=== PATIENT | female | born 1945 | race Caucasian/White ===

== ENCOUNTER 2018-05-01 22:50 | Inpatient (IN) | payer OTHER ==
[~2018-05-01] VITALS: Ht 172.7 cm; Wt 95.7 kg
[~2018-05-01 22:50] MED LIST: ASPIR 8181 MG PO; ASPIRIN600 MG RECTAL; BISOPROLOL FUM2.5 MG PO; COLACE100 MG PO; DEXTROSE IV; ENOXAPARIN40 MG/0.1 SUBQ; FEVERALL JR 32325 M1 RECTAL; GLUCAGEN1 MG IM; GLUCOTROL5 MG PO; GLUTOSE GEL 1515 G1 PO; LEVOTHYROXIN0.112 M1 PO; LIPITOR 20 MG T20 M1 PO; LISINOPRIL2.5 M1 PO; MILK OF MA2400 MG/10 PO; NORVASC10 MG PO; NOVOLOG100 UNIT/1 SUBQ; ONDANSETRON HCL4 M2 PO; PEPCID20 MG PO; PLAVIX 75 MG TA75 M1 PO; TRICOR145 MG PO; TYLENOL325 MG PO; ZOCOR 10 MG TAB10 MG PO; ZOCOR20 MG PO; [UNRECOGNIZED DRUG - OTHER] IV; [UNRECOGNIZED DRUG - OTHER] PO
[2018-05-01 22:53] VITALS: BP 192/74
[2018-05-01 23:46] LABS: ABSOLUTE BASOPHILS 0.1 thou/uL (0.0-0.2); ABSOLUTE EOSINOPHILS 0.2 thou/uL (0.0-0.7); ABSOLUTE LYMPHOCYTES 2.8 thou/uL (0.8-5.3); ABSOLUTE MONOCYTES 0.6 thou/uL (0.0-1.2); ABSOLUTE NEUTROPHILS 4.3 thou/uL (1.6-8.1); BASOPHILS 1.3 %; EOSINOPHILS 2.7 %; HEMATOCRIT 38.5 % (37.0-47.0); HEMOGLOBIN 13.1 gm/dL (12.0-15.0); LYMPHOCYTES 34.6 %; MCH 30.1 pg (26.0-34.0); MCHC 33.9 g/dL (28.0-37.0); MCV 88.7 fL (80.0-100.0); MONOCYTES 7.2 %; MPV 7.9 fl. (7.2-11.1); NUCLEATED RBCS 0 /100WBC; PLATELET COUNT* 354 thou/uL (150-400); POLYS 54.2 %; RBC 4.34 mil/uL (4.20-5.00); RDW-CV 13.8 % (10.5-14.5)
[2018-05-01 23:55] LABS: ANION GAP 10 mmol/L (7-16); BUN 23 mg/dL (7-18); CALCIUM 8.5 mg/dL (8.5-10.1); CHLORIDE 102 mmol/L (98-107); CO2 24 mmol/L (21-32); GLUCOSE 273 mg/dL (70-99); POTASSIUM 3.4 mmol/L (3.5-5.1); SODIUM 136 mmol/L (136-145)
[2018-05-02] LABS: URINE BILIRUBIN NEGATIVE (Negative); URINE BLOOD NEGATIVE (Negative); URINE CLARITY CLEAR; URINE COLOR YELLOW; URINE GLUCOSE-RANDOM 2+ (Negative); URINE KETONES NEGATIVE (Negative); URINE LEUKOCYTES-REFLEX NEGATIVE (Negative); URINE NITRITE-REFLEX NEGATIVE (Negative); URINE PROTEIN NEGATIVE (Negative); URINE UROBILINOGEN 0.2 E.U./dl (0.2-1.0)
[2018-05-02 00:07] LABS: ALBUMIN 3.8 g/dL (3.4-5.0); ALKALINE PHOSPHATASE 103 U/L (46-116); NT-PRO BRAIN NAT PEPTIDE 115 pg/mL (<300); SGPT 32 U/L (30-65); TOTAL BILIRUBIN 0.4 mg/dL (<0.1-1.0); TOTAL PROTEIN 7.1 g/dL (6.4-8.2); TROPONIN-I LEVEL <0.06 ng/mL (<0.06)
[2018-05-02 00:13] LABS: PROTIME 9.7 Seconds (9.20-11.50)
[2018-05-02 00:42] LABS: SGOT 21 U/L (15-37)
[2018-05-02 01:50] VITALS: BP 144/60
[2018-05-02 02:06] VITALS: BP 169/66
[2018-05-02 07:40] VITALS: BP 146/61
--- NOTE | 2018-05-02 10:30 | EKG ---
[place] [address] ELECTROCARDIOGRAM REPORT Name: DANNALYUBOVAbril Thomson Room: [address] ADM [place] .R.#: [id number] Admission: 05/02/18 Attend Phys: Jovani Cason, Discharge: Date of : 41 Report #: [id number] THIS REPORT FOR: //name// [facility] ED Test Date: 2018-05-01 Test Time: 23:06:30 Pat Name: HINA CLAY Department: Room: [facility] Gender: F Customer Support Analyst: KRYSTLE : 1945 Requested By: Linn Ladd Order Number: [id number] MD: Rusty Pearce Measurements Intervals [place] Rate: 73 P: 57 [place]: 185 QRS: 20 QRSD: 124 T: 59 QT: 425 QTc: 469 Interpretive Statements Sinus rhythm Nonspecific intraventricular conduction delay Minimal ST depression, inferior leads Compared to ECG 01/16/2016 23:33:39 no change Electronically Signed On 05-02-2018 10:30:29 CDT by Rusty Pearce [email or web address] <ELECTRONICALLY SIGNED> By: Rusty Pearce MD, [facility] 05/02/18 1030 05 Rusty Pearce MD, [facility] /EPI
[2018-05-02 12:00] VITALS: BP 152/70
[2018-05-02 14:35] LABS: CALCIUM 8.1 mg/dL (8.5-10.1); POTASSIUM 3.5 mmol/L (3.5-5.1)
[2018-05-02 16:00] VITALS: BP 151/59
[2018-05-02 19:30] VITALS: BP 146/58
[2018-05-03] VITALS: BP 154/64
[2018-05-03 04:00] VITALS: BP 155/68
[2018-05-03 08:00] VITALS: BP 104/72
[2018-05-03 09:41] LABS: CHOLESTEROL 132 mg/dL (<200); HDL CHOLESTEROL 24 mg/dL (>40); LDL CHOLESTEROL 36 mg/dL (<100); SERUM ASSESSMENT Clear; TC:HDL 5.5 Ratio (Not establshd); TRIGLYCERIDE 362 mg/dL (<150); VLDL 72 mg/dL (<40)
[2018-05-03 12:04] VITALS: BP 149/52
[2018-05-03 12:57] LABS: ALBUMIN 3.7 g/dL (3.4-5.0); CALCIUM 8.6 mg/dL (8.5-10.1); CREATININE 0.8 mg/dL (0.6-1.3); POTASSIUM 3.9 mmol/L (3.5-5.1); TOTAL BILIRUBIN 0.5 mg/dL (<0.1-1.0); TOTAL PROTEIN 6.7 g/dL (6.4-8.2)
[2018-05-03 16:22] VITALS: BP 151/101
[2018-05-03 20:00] VITALS: BP 164/74
[2018-05-04] VITALS: BP 148/88
[2018-05-04 04:00] VITALS: BP 161/78
[2018-05-04 07:55] VITALS: BP 155/61
[2018-05-04 11:35] VITALS: BP 183/88
[2018-05-04] MEDS ORDERED: MINOCIN100 MG PO (13:26)
[2018-05-04] MEDS ORDERED: ATORVASTATIN CA40 MG PO (13:26)
[2018-05-04] MEDS ORDERED: MIRALAX17 GM PO (13:54)
[2018-05-04 13:55] VITALS: BP 183/88
[2018-05-04 15:09] LABS: GLYCOHEMOGLOBIN (HGB A1C) 7.7 % (4.8-5.6)
--- NOTE | 2018-05-06 12:34 | CON ---
[address] [address] CONSULTATION Name: DANNALYUBOVAbril Thomson Room: [address] IN M.R.#: [id number] Admission: 05/02/18 Attend Phys: Jovani Cason, Discharge: 05/04/18 Date of : 41 Report #: [id number] THIS REPORT FOR: //name// CC: Faith Cason DATE OF SERVICE: 05/02/2018 HISTORY OF PRESENT ILLNESS: This is a 72-year-old female patient who was evaluated by me for a complicated history. The patient indicated that she had a stroke in 2015. That affected the right side of the body. She was left with some weakness and incoordination on the right side. Then, she had some TIA-like symptoms. Starting this Thursday, she started having difficulty swallowing and some shortness of breath. She was more ataxic. She indicated that at one time, she also had a brainstem stroke. The records indicate that she is on Plavix. I reviewed the records in 2015 and she did have an MRI of the brain at that time, which did confirm the stroke. She also had some symptoms suggestive of stroke in 2008. Whether that was TIA or stroke is not clear. REVIEW OF SYSTEMS: Indicates that this patient had difficulty swallowing and she also has difficulty with breathing. She indicated that she was short of breath when this happened. She is on Plavix. She has a prior history of hypertension, hypothyroidism, hysterectomy, breast cancer, diabetes and thyroid abnormality. Her 14-point review of system was carried out and this was a relevant 14-point review of system. She is not complaining of any new ophthalmological, ENT, GI, , musculoskeletal, constitutional, dermatological, hematological, psychiatric, throat or allergic symptom associated with present symptomatology. PAST MEDICAL HISTORY: Positive for stroke as well as CVA. FAMILY HISTORY: Negative for any early age strokes. SOCIAL HISTORY: She does not use any alcohol. PHYSICAL EXAMINATION: NEUROLOGIC: The patient's examination indicates that she is alert and responsive. She is oriented. Her speech may be slightly affected, but mostly she is able to express herself. She believes her memory and fund of knowledge are at her baseline. Cranial nerve examination 2-12 was carried out; it appears mostly unremarkable. She moves all 4 extremities. She appeared to be ataxic on the right side. Her position sense is present. Her tone looks symmetrical. Pulses are somewhat difficult to feel. She has no edema, cyanosis or jaundice. CARDIAC EXAMINATION: Unremarkable. RESPIRATORY EXAMINATION: Does show some respiratory difficulty. VITAL SIGNS: Her blood pressure is 146/61, respirations are 16, pulse is 63 [place] [address] CONSULTATION Name: HINA CLAY Alix Room: [address] IN M.R.#: [id number] Admission: 05/02/18 Attend Phys: Jovani Cason, Discharge: 05/04/18 Date of : 41 Report #: [id number] temperature is 98.4. LABORATORY DATA: White count is 8.0 and blood sugar is 273. CT scan was reviewed. It showed chronic changes, but does not appear to be showing any acute changes. IMPRESSION: Because of the patient's prior history of strokes, I think we need to do MRI to see if she had a new stroke or not. That is already ordered. I will also suggest doing the speech therapy evaluation to make sure she is not aspirating. I ordered that. Further workup will depend upon what we find on this evaluation. All of it was discussed with the patient in detail. I discussed her options with her. She understood all those. More than 50 minutes of time was spent taking care of this patient today and majority of that time was spent counseling the patient and coordinating her care. <ELECTRONICALLY SIGNED> By: Sean Mathews MD 05/06/18 1234 0929 [id number] Mathews MD /nt
== END 2018-05-04 14:45 | disposition home or self-care (01) | DRG 65 ==
LOC: M.ERS 22:50 → M.2W 05-02 01:17 → M.TBA-ER 05-02 01:17 → M.2W 05-02 01:36
PROVIDERS: Emergency Medicine; Internal Medicine; ADMIT Family Medicine
DX: I63.9 Cerebral infarction, unspecified (principal); J98.11 Atelectasis; G93.89 Other specified disorders of brain; I10 Essential (primary) hypertension; E11.9 Type 2 diabetes mellitus without complications; E89.0 Postprocedural hypothyroidism; Z85.3 Personal history of malignant neoplasm of breast; Z86.73 Personal history of transient ischemic attack (TIA), and cerebral infarction without residual deficits; Z90.710 Acquired absence of both cervix and uterus; Z79.02 Long term (current) use of antithrombotics/antiplatelets; Z79.82 Long term (current) use of aspirin; Z79.899 Other long term (current) drug therapy; Z88.0 Allergy status to penicillin; Z88.2 Allergy status to sulfonamides

== ENCOUNTER 2018-05-14 22:56 | Inpatient (IN) | payer OTHER ==
[~2018-05-14] VITALS: Ht 152.4 cm; Wt 93.7 kg
[~2018-05-14 22:56] MED LIST changes: +ATORVASTATIN CA40 MG PO; +MINOCIN100 MG PO; +MIRALAX17 GM PO
[2018-05-14 23:02] VITALS: BP 168/59
[2018-05-14] MEDS ORDERED: PLAVIX 75 MG TA75 M1 PO (23:12)
[2018-05-14 23:30] LABS: HEMATOCRIT 38.9 % (37.0-47.0); HEMOGLOBIN 13.2 gm/dL (12.0-15.0); MCH 30.1 pg (26.0-34.0); MCV 88.4 fL (80.0-100.0); MPV 8.3 fl. (7.2-11.1); NUCLEATED RBCS 0 /100WBC; PLATELET COUNT* 248 thou/uL (150-400); RDW-CV 13.5 % (10.5-14.5); WBC 10.1 thou/uL (4.0-11.0)
[2018-05-14 23:40] LABS: CALCIUM 8.6 mg/dL (8.5-10.1); CREATININE 1.1 mg/dL (0.6-1.3); POTASSIUM 3.9 mmol/L (3.5-5.1)
[2018-05-14 23:45] LABS: ALBUMIN 3.7 g/dL (3.4-5.0); TOTAL BILIRUBIN 0.9 mg/dL (<0.1-1.0); TOTAL PROTEIN 7.1 g/dL (6.4-8.2)
[2018-05-15 00:26] LABS: URINE BILIRUBIN NEGATIVE (Negative); URINE BLOOD NEGATIVE (Negative); URINE CLARITY CLEAR; URINE COLOR DARK YELLOW; URINE GLUCOSE-RANDOM NEGATIVE (Negative); URINE KETONES TRACE (Negative); URINE LEUKOCYTES-REFLEX NEGATIVE (Negative); URINE NITRITE-REFLEX NEGATIVE (Negative); URINE PROTEIN 1+ (Negative); URINE SPECIFIC GRAVITY >= 1.030 (1.005-1.030); URINE UROBILINOGEN 0.2 E.U./dl (0.2-1.0)
[2018-05-15 01:05] VITALS: BP 139/53
[2018-05-15 01:33] VITALS: BP 146/57
[2018-05-15 02:22] LABS: ABSOLUTE EOSINOPHILS 0.1 thou/uL (0.0-0.7); ABSOLUTE MONOCYTES 0.5 thou/uL (0.0-1.2); ABSOLUTE NEUTROPHILS 8.5 thou/uL (1.6-8.1); PLATELET ESTIMATE ADEQUATE
[2018-05-15 02:23] LABS: ANISOCYTOSIS 1+; TOXIC GRANULATION 1+
[2018-05-15 04:46] VITALS: BP 144/57
[2018-05-15 07:55] VITALS: BP 144/55
[2018-05-15] MEDS ORDERED: GLUCOTROL5 MG PO (10:25)
[2018-05-15 12:00] VITALS: BP 133/59
[2018-05-15 15:50] VITALS: BP 144/56
[2018-05-16] VITALS: BP 152/68
[2018-05-16 04:20] VITALS: BP 142/64
[2018-05-16 04:44] LABS: HEMATOCRIT 30.3 % (37.0-47.0); MCH 30.2 pg (26.0-34.0); MCV 86.4 fL (80.0-100.0); MPV 8.4 fl. (7.2-11.1); RBC 3.5 mil/uL (4.20-5.00); RDW-CV 13.8 % (10.5-14.5); WBC 7.4 thou/uL (4.0-11.0)
[2018-05-16 04:47] LABS: HEMOGLOBIN 10.6 gm/dL (12.0-15.0)
[2018-05-16 05:10] LABS: CALCIUM 7.5 mg/dL (8.5-10.1); CREATININE 0.9 mg/dL (0.6-1.3); MAGNESIUM 1.9 mg/dL (1.8-2.4); POTASSIUM 3.2 mmol/L (3.5-5.1)
[2018-05-16 08:30] VITALS: BP 135/60
[2018-05-16 12:00] VITALS: BP 120/65
[2018-05-16 16:00] VITALS: BP 127/59
[2018-05-16 20:00] VITALS: BP 136/65
[2018-05-17] VITALS (11 sets, daily range): BP systolic 89–136; BP diastolic 50–65
[2018-05-17 04:51] LABS: HEMATOCRIT 31.7 % (37.0-47.0); HEMOGLOBIN 10.7 gm/dL (12.0-15.0); MCH 29.6 pg (26.0-34.0); MCHC 33.8 g/dL (28.0-37.0); MCV 87.7 fL (80.0-100.0); MPV 8.7 fl. (7.2-11.1); RBC 3.62 mil/uL (4.20-5.00); WBC 7.8 thou/uL (4.0-11.0)
[2018-05-17 05:13] LABS: CALCIUM 7.6 mg/dL (8.5-10.1); CREATININE 0.8 mg/dL (0.6-1.3); MAGNESIUM 2.1 mg/dL (1.8-2.4); POTASSIUM 3.3 mmol/L (3.5-5.1)
--- NOTE | 2018-05-17 11:05 | EKG ---
[place] [address] ELECTROCARDIOGRAM REPORT Name: HINA CLAY Room: [address] ADM IN M.R.#: [id number] Admission: 05/15/18 Attend Phys: Gómez Moreno MD Discharge: Date of : 41 Report #: [id number] THIS REPORT FOR: //name// [facility] Test Date: 2018-05-17 Test Time: 03:46:03 Pat Name: HINA CLAY Department: Room: [address] Gender: F Assistant Account Executive: HERNÁN : 1945 Requested By: Gómez Moreno Order Number: [id number] Reading MD: Rusty Pearce Measurements Intervals [place] Rate: 115 P: [place]: QRS: 29 QRSD: 101 T: 208 QT: 316 QTc: 437 Interpretive Statements Atrial fibrillation Borderline low voltage, extremity leads Nonspecific repol abnormality, lateral leads Compared to ECG 05/01/2018 23:06:30 Sinus rhythm no longer present Electronically Signed On 05-17-2018 11:05:28 CDT by Rusty Pearce [email or web address] <ELECTRONICALLY SIGNED> By: Rusty Pearce MD, [facility] 05/17/18 1105 0346 [id number] Rusty Pearce MD, [facility] /EPI
--- NOTE | 2018-05-17 13:44 | CON ---
[address] [address] CONSULTATION Name: HINA CLAY Room: [address] IN M.R.#: [id number] Admission: 05/15/18 Attend Phys: Gómez Moreno MD Discharge: Date of : 41 Report #: [id number] THIS REPORT FOR: //name// CC: Gómez CABRALA BRIGHT Stuart Bright DATE OF SERVICE: 05/17/2018 HISTORY OF PRESENT ILLNESS: The patient is a 72-year-old white female who I was asked to see in the hospital today after she is noted to be in atrial fibrillation. The patient has had apparently multiple strokes in the past. She states she had her first stroke in 2008. It affected the left side of her body. She apparently just presented 2 weeks ago with shortness of breath. She had difficulty speaking and problems with balance, weakness of the right arm and leg. She was weak. After she was admitted, she was seen in consultation by Dr. Mathews of the neurology service. The patient did undergo a stroke workup. She was just discharged 10 days ago. She was felt to have had another stroke. The patient has been on Plavix for years. Neurology mentioned monitoring the patient for atrial fibrillation or working up for vasculitis and considered a VANDANA. The patient was just discharged home a week ago. She was brought back to the emergency room 3 days ago. She apparently was fell and had difficulty getting up. She was very weak. She apparently did not lose consciousness. She has had no recent vomiting, diarrhea, or bleeding. She denied any history of myocardial infarction or chest pain. She denies increased shortness of breath. She denied her heart beating irregular or history of syncope. When she was admitted, she was found to be in atrial fibrillation. She was started on IV diltiazem. Cardiology consultation requested. PAST MEDICAL HISTORY: Significant for breast cancer with previous left mastectomy. She has had a hysterectomy. She has hypertension and diabetes. MEDICATIONS ON ADMISSION: Consist of glipizide, clopidogrel, amlodipine, fenofibrate, Synthroid, aspirin, and lisinopril. She previously had been on Lipitor. ALLERGIES: To PENICILLIN. FAMILY HISTORY: Her father had a heart attack. SOCIAL HISTORY: She is . She and her live outside of [place], [place]. No smoking or alcohol abuse. REVIEW OF SYSTEMS: She has had no history of asthma, peptic ulcer disease, liver disease, kidney disease, psychiatric illness, [place] [address] CONSULTATION Name: HINA CLAY Room: [address]#: [id number] Admission: 05/15/18 Attend Phys: Gómez Moreno MD Discharge: Date of : 41 Report #: [id number] PHYSICAL EXAMINATION: GENERAL: Revealed an elderly female, lying in bed. She appeared in no acute distress. VITAL SIGNS: She had a blood pressure 130/60, pulse is 100, she is afebrile. HEENT: She was anicteric. Conjunctivae are pale. Mucous members appear dry. NECK: Veins do not appear distended. CHEST: Clear to auscultation. HEART: Irregular rhythm. No significant murmur. ABDOMEN: Soft. EXTREMITIES: Had no edema. Dorsalis pedis pulse cannot be palpated. SKIN: Cool and dry. NEUROLOGIC: She is very weak. PSYCHIATRIC: Mood, she appeared depressed. ECG on admission appeared to represent a sinus rhythm. Last night, the patient appeared to go in atrial fibrillation with an increased ventricular response rate. Workup, the patient had an echocardiogram done in January that showed ejection fraction 55%, aortic sclerosis, mild mitral regurgitation. Her workup, she had a carotid Doppler study done 2 weeks ago that showed no significant stenosis. She had a chest x-ray this morning that shows right basilar atelectasis. She had lab work, sodium 141, potassium 3.3, creatinine 0.8. Her white blood cell count 7.8, hemoglobin 10.7. IMPRESSION AND RECOMMENDATIONS: 1. Atrial fibrillation. Rate controlled after the patient was started on IV diltiazem. At this time, I would try to convert the patient. I would recommend starting sotalol. If the patient fails to convert, I would consider elective electrical cardioversion. 2. Previous stroke. Suspect embolic event from paroxysmal atrial fibrillation. I would recommend starting anticoagulation. 3. Diabetes. 4. History of hypertension. The patient has been on a calcium zaida and KIA inhibitor. 5. Hyperlipidemia. The patient has been on a statin drug in the past. 6. Previous stroke with residual weakness. 7. Bronchitis. <ELECTRONICALLY SIGNED> By: Rusty Pearce MD, [facility] 05/17/18 1344 0859 [id number] Pearce MD, FAC /nt
[2018-05-17 17:10] LABS: CALCIUM 7.8 mg/dL (8.5-10.1); CREATININE 1.3 mg/dL (0.6-1.3); POTASSIUM 4.4 mmol/L (3.5-5.1)
[2018-05-18] VITALS (56 sets, daily range): BP systolic 73–181; BP diastolic 22–85
[2018-05-18 04:46] LABS: HEMATOCRIT 32.9 % (37.0-47.0); HEMOGLOBIN 10.8 gm/dL (12.0-15.0); MCH 29.8 pg (26.0-34.0); MCHC 32.9 g/dL (28.0-37.0); MCV 90.4 fL (80.0-100.0); RBC 3.64 mil/uL (4.20-5.00); WBC 6.4 thou/uL (4.0-11.0)
[2018-05-18 05:27] LABS: BE -9.6 mmol/L (-2 to +3); HCO3 14.9 mmol/L (22.0-26.0); PCO2 28.5 mmHg (35.0-45.0); PO2 104.6 mmHg (75.0-100.0); pH 7.336 (7.340-7.450)
[2018-05-18 05:41] LABS: ALBUMIN 2.5 g/dL (3.4-5.0); CALCIUM 8.2 mg/dL (8.5-10.1); CREATININE 1.4 mg/dL (0.6-1.3); MAGNESIUM 2.5 mg/dL (1.8-2.4); POTASSIUM 4.5 mmol/L (3.5-5.1); TOTAL BILIRUBIN 0.7 mg/dL (<0.1-1.0); TOTAL PROTEIN 5.6 g/dL (6.4-8.2)
[2018-05-18 10:27] LABS: BE -9.4 mmol/L (-2 to +3); HCO3 14.5 mmol/L (22.0-26.0); PCO2 25.8 mmHg (35.0-45.0); PO2 78.4 mmHg (75.0-100.0); pH 7.368 (7.340-7.450)
[2018-05-18 12:11] LABS: URINE BILIRUBIN NEGATIVE (Negative); URINE BLOOD NEGATIVE (Negative); URINE CLARITY CLEAR; URINE COLOR DARK YELLOW; URINE GLUCOSE-RANDOM 2+ (Negative); URINE KETONES 1+ (Negative); URINE LEUKOCYTES-REFLEX NEGATIVE (Negative); URINE NITRITE-REFLEX NEGATIVE (Negative); URINE PROTEIN TRACE (Negative); URINE SPECIFIC GRAVITY >= 1.030 (1.005-1.030); URINE UROBILINOGEN 0.2 E.U./dl (0.2-1.0)
[2018-05-18 12:38] LABS: BE -8.7 mmol/L (-2 to +3); HCO3 18.3 mmol/L (22.0-26.0); PCO2 44.2 mmHg (35.0-45.0); PO2 117.5 mmHg (75.0-100.0)
[2018-05-18 12:39] LABS: pH 7.235 (7.340-7.450)
--- NOTE | 2018-05-18 13:24 | CON ---
[facility] [address] [place] [address] CONSULTATION Name: HINA CLAY Room: [address] IN M.R.#: [id number] Admission: 05/15/18 Attend Phys: Gómez Moreno MD Discharge: Date of : 41 Report #: [id number] THIS REPORT FOR: //name// CC: Gómez Bailey DATE OF SERVICE: 05/18/2018 CHIEF COMPLAINT: Weakness. REFERRING PHYSICIAN: Gómez Moreno M.D. HISTORY OF PRESENT ILLNESS: The patient is a 72-year-old female who has had multiple strokes in the past. She has a history of aspiration as well documented on prior swallow studies, a more recent was in 04/2018. The patient had been hospitalized and was brought down from the medical floors to the ICU during the night. She was in respiratory distress, had decrease in her O2 sats. She was placed on BiPAP therapy. We were asked to see the patient. Currently, she is on BiPAP therapy. She is not in any pain. Information is taken from the patient's family. According to the and the patient's son, she was not having any fever or chills at home. She was experiencing short of breath on the day of admission. She was sitting in her recliner and had acute onset of shortness of breath. According to the son, the patient had been experiencing reflux symptoms as well. She has been taking quite a bit in the way of "Tums" at home. The patient this morning while on BiPAP is denying any pain or distress at this time. She has some mild abdominal discomfort. PAST MEDICAL HISTORY: Significant for breast carcinoma approximately 27 years ago, status post mastectomy. She had elective mastectomy performed on the opposite side about a year later, she has not had any evidence of recurrence. In addition, she has had cerebrovascular accidents at least on 2 separate occasions. She has had generally residual weakness of her lower extremities. She has had also difficulty with speech and has resumed a significant amount of vocal communicative function. She has had problems with aspiration. According to the family, she has recent diagnosis of atrial fibrillation. She has history of diabetes, obesity. She has history of hypertension as well and hypothyroidism. ALLERGIES: PENICILLIN AND SULFA DRUGS. SOCIAL HISTORY: She lives with [place] . [place] [address] CONSULTATION Name: HINA CLAY Room: [address]#: [id number] Admission: 05/15/18 Attend Phys: Gómez Moreno MD Discharge: Date of : 41 Report #: [id number] wheelchair ridden. She does ambulate to a small amount. She has very little activity at home with ambulation. She is able to care for herself, otherwise. She is a lifelong nonsmoker. REVIEW OF SYSTEMS: System review negative other than what is outlined above. FAMILY HISTORY: Not pertinent for current patient's age. PHYSICAL EXAMINATION: VITAL SIGNS: Blood pressure has been quite soft in the last 4-5 hours. Her heart rate has diminished. She is down to less than 60 beats per minute. Respiratory rate is increased in the low 30s. Temperature 97.3 degrees, weight 218 pounds. GENERAL APPEARANCE: The patient is in a umkc-sc-ndtvrnig amount of respiratory distress. She is not tachypneic, respirations are nonlabored. She has been placed on BiPAP therapy. Sats are in the 98% range. HEAD: Atraumatic. EYES: Pupils are round, equal, reactive. ORAL CAVITY: Moist. NECK: No adenopathy. CHEST: Reveals diminished breath sounds on the right with crackles, no wheezes or rhonchi. CARDIOVASCULAR: Distant heart tones. ABDOMEN: Obese with mild discomfort on palpation of the right upper quadrant. There is no mass effect. No evidence of guarding or rebound. EXTREMITIES: Reveal trace of edema bilaterally. CHEST SALDIVAR: She does have bilateral mastectomies. There are no chest wall lesions. SKIN: Warm and dry, otherwise. NEUROLOGIC: She is responsive. She answers simple questions by nodding yes or no. She is able to move her extremities, but she is extremely weak throughout. LABORATORY DATA: Arterial blood gas this morning at about 5:15 a.m. pH 7.34, pCO2 of 28, pO2 105, bicarbonate of 15 while on BiPAP therapy. Hemoglobin and hematocrit today is 10.8 and 32 with a white count of 6400, platelet count 225,000. Electrolytes: Sodium 140, potassium 4.5, chloride 108, CO2 of 16, BUN of 36, creatinine 1.4, EGFR 37. Troponin 0.33, TSH is 1.26, free T4 1.29. CT of the chest reveals patchy infiltrates, ground glass opacities on the right compared to the left. Air bronchograms are noted in the right mid lung field in the perihilar region. There is no evidence of adenopathy. She does have evidence of coronary calcification. See the dictated report, small effusion, greater on the right than the left. ASSESSMENT: 1. Acute respiratory insufficiency/failure. 2. Atrial fibrillation with bradycardia. [address] [address] CONSULTATION Name: HINA CLAY Room: [address]#: [id number] Admission: 05/15/18 Attend Phys: Gómez Moreno MD Discharge: Date of : 41 Report #: [id number] 3. Obesity. 4. History of breast carcinoma. No evidence of recurrence. 5. Diabetes. 6. Coronary artery disease. 7. History of reflux. 8. Cerebrovascular accident. 9. Aspiration. RECOMMENDATION: We will initiate aspiration precautions. The patient will be intubated. She is developing respiratory distress. A central line will be inserted as well. We will initiate aerosol treatments, sleep medicine for sedation. Cardiology is addressing her rhythm disturbances. We will continue with close monitoring. Repeat labs. She will need a gastric tube for nutrition within the next 24 hours. Sedation will be properly administered to keep the patient comfortable. Kilgore catheter will be inserted. The patient has had a prior 2D echocardiogram a couple of years ago. She had preserved ventricular function and ejection fraction that study was performed on 01/17/2016. The bottling supervisor felt that the EF was around 55%-60%. There was no evidence of pulmonary hypertension on that study. Approximately 35 minutes were spent. <ELECTRONICALLY SIGNED> By: Richard Pitt MD 05/18/18 1324 1032 [id number] Pitt MD /nt
--- NOTE | 2018-05-18 15:12 | 2DMMODE ---
[place] [address] 2 D/M-MODE ECHOCARDIOGRAM Name: HINA CLAY Alix Room: [address] IN [facility]#: [id number] Admission: 05/15/18 Attend Phys: Gómez Moreno, Discharge: Date of : 41 Date of Service: 05/18/18 1511 Report #: [id number] THIS REPORT FOR: //name// APPROVED REPORT Study performed: 05/18/2018 11:40:20 EXAM: Comprehensive 2D, Doppler, and color-flow Echocardiogram Patient Location: In-Patient Room #: 003 Status: routine BSA: 2.05 HR: 89 bpm BP: 148/79 mmHg Rhythm: Atrial Fibrillation Other Information Study Quality: Good Indications Atrial Fibrillation Pneumonia, on vent 2D Dimensions LVEF(%): 70.50 (>50%) IVSd: 12.56 (7-11mm) LVOT Diam: 21.30 (18-24mm) LVDd: 51.84 mm PWd: 11.54 (7-11mm) Ascending Ao: 37.05 (22-36mm) LVDs: 31.01 (25-40mm) Aortic Root: 29.76 mm Arana's LVEF: 70.50 % Volumes Left Atrial Volume (Systole) LA ESV Index: 44.50 mL/m2 Aortic Valve AoV Peak James.: 1.78 m/s AO Peak Gr.: 12.68 mmHg LVOT Max P.26 mmHg AO Mean Gr.: 7.23 mmHg LVOT Mean P.98 mmHg LVOT Max V: 1.03 m/s AO V2 VTI: 29.72 cm LVOT Mean V: 0.64 m/s ANASTASIA (VTI): 2.07 cm2 LVOT V1 VTI: 17.25 [place] [address] 2 D/M-MODE ECHOCARDIOGRAM Name: DANNA,LENDAbril Thomson Room: [address] IN .R.#: [id number] Admission: 05/15/18 Attend Phys: Gómez Moreno, Discharge: Date of : 41 Date of Service: 05/18/18 1511 Report #: [id number] MV Decel. Time: 194.76 ms MV PHT: 56.48 ms MVA (PHT): 3.90 cm2 TDI Lateral E' James.: 0.13 m/s Pulmonary Valve PV Peak James.: 0.98 m/s PV Peak Gr.: 3.85 mmHg Tricuspid Valve RAP Estimate: 5.00 mmHg TR Peak Gr.: 26.73 mmHg RVSP: 31.73 mmHg PA Pressure: 31.73 mmHg Left Ventricle The left ventricle is normal size. There is normal LV segmental wall motion. Mild concentric left ventricular hypertrophy. Left ventricular systolic function is normal. LVEF is 60-65%. This study is not technically sufficient to allow evaluation of the LV diastolic function due to atrial fibrillation. Right Ventricle The right ventricle is normal size. The right ventricular systolic function is normal. Atria Left atrium is moderately dilated. The right atrium size is normal. Aortic Valve Mild aortic valve sclerosis. No aortic regurgitation is present. There is no aortic valvular stenosis. Mitral Valve The mitral valve is normal in structure. Mild mitral regurgitation. No evidence of mitral valve stenosis. Tricuspid Valve The tricuspid valve is normal in structure. Mild tricuspid regurgitation. Mild pulmonary hypertension. Pulmonic Valve The pulmonary valve is normal in structure. There is no pulmonic [place] [address] 2 D/M-MODE ECHOCARDIOGRAM Name: DANNAHINA KEY Alix Room: [address] IN [facility].#: [id number] Admission: 05/15/18 Attend Phys: Gómez Moreno, Discharge: Date of : 41 Date of Service: 05/18/18 1511 Report #: [id number] Great Vessels The aortic root is normal in size. Echogenic structure vs. significant shadowing noted within the aortic root. IVC is normal in size and collapses with >50% inspiration Pericardium There is no pericardial effusion. <Conclusion> The left ventricle is normal size. Mild concentric left ventricular hypertrophy. Left ventricular systolic function is normal. LVEF is 60-65%. Left atrium is moderately dilated. Mild aortic valve sclerosis. Mild tricuspid regurgitation. Mild pulmonary hypertension. Echogenic structure vs. significant shadowing noted within the aortic root. Recommend VANDANA to further evaluate aortic root. <ELECTRONICALLY SIGNED> By: Gigi Durand MD, FACC 05/18/18 151 10 10 Gigi Durand MD, FACC /INF
--- NOTE | 2018-05-18 17:14 | EKG ---
[place] [address] ELECTROCARDIOGRAM REPORT Name: HINA CLAY Room: [address] ADM [place] .R.#: [id number] Admission: 05/15/18 Attend Phys: Gómez Moreno MD Discharge: Date of : 41 Report #: [id number] THIS REPORT FOR: //name// [facility] Test Date: 2018-05-18 Test Time: 10:09:55 Pat Name: HINA CLAY Department: Room: [facility] Gender: F Repairer Screen Crusher: [id number] : 1945 Requested By: Rusty Pearce Order Number: [id number] Petr MD: Rusty Pearce Measurements Intervals [place] Rate: 46 P: [place]: QRS: 29 QRSD: 108 T: 3 QT: 532 QTc: 466 Interpretive Statements Atrial fibrillation Borderline T wave abnormalities Compared to ECG 05/17/2018 03:46:03 rate slowed Electronically Signed On 05-18-2018 17:14:25 CDT by Rusty Pearce [email or web address] <ELECTRONICALLY SIGNED> By: Rusty Pearce MD, [facility] 05/18/18 1714 D: [id number] 100 Rusty Pearce MD, FACC /EPI
--- NOTE | 2018-05-18 19:57 | TEE ---
[place] [address] TRANSESOPHAGEAL ECHOCARDIOGRAM Name: HINA CLAY Room: [address] IN [facility]#: [id number] Admission: 05/15/18 Attend Phys: Gómez Moreno, Discharge: Date of : 41 Date of Service: 05/18/181956 Report #: [id number] THIS REPORT FOR: //name// APPROVED REPORT Study performed: 05/18/2018 16:25:02 EXAM: Transesophageal Echocardiogram Patient Location: In-Patient Room #: [facility] Status: routine BSA: 2.05 HR: 85 bpm BP: 120/65 mmHg Rhythm: Atrial Fibrillation Other Information Study Quality: Good Indications Atrial Fibrillation Assess for clot in ascending aorta Echo Enhancing Agent Indication: Rule out Shunt Agent(s) / Amount(s) Used: Agitated Saline 10 cc Procedure After obtaining informed consent, patient underwent transesophageal echo in the [employer]. Type of Sedation : Conscious SedationGeneral Anesthesia Patient was on a vent therefore already sedated. Transesophageal probe was inserted and advanced into esophagus without difficulty by Gigi Durand MD, [facility]. Echo enhancement indication: R/O Septal defect. Echo enhancement agent administered: Agitated Saline The VANDANA was performed without complications. Throughout the procedure, the blood pressure, pulse oximetry, cardiac rhythm, and rate were monitored. The patient tolerated the procedure without adverse effects. Recovery from conscious sedation was uneventful and vital signs were stable. Left Ventricle The left ventricle is normal size. There is normal LV segmental wall [address] [address] TRANSESOPHAGEAL ECHOCARDIOGRAM Name: HINA CLAY Room: [address] IN ..#: [id number] Admission: 05/15/18 Attend Phys: Gómez Moreno, Discharge: Date of : 41 Date of Service: 05/18/181956 Report #: [id number] motion. There is normal left ventricular wall thickness. Left ventricular systolic function is normal. LVEF is 55-60%. Right Ventricle The right ventricle is normal size. The right ventricular systolic function is normal. Atria The left atrium size is normal. No thrombus is visualized in the left atrium or appendage. Interatrial septum is intact without evidence of ASD or PFO. The right atrium size is normal. Aortic Valve The aortic valve is normal in structure. No aortic regurgitation is present. There is no aortic valvular stenosis. Mitral Valve The mitral valve is normal in structure. Moderate mitral regurgitation. No evidence of mitral valve stenosis. Tricuspid Valve The tricuspid valve is not well visualized. Pulmonic Valve Pulmonic valve is not well visualized. Trace pulmonic regurgitation. Great Vessels Aortic root is calcified. Moderate calcification noted in the descending aorta. Pericardium There is no pericardial effusion. <Conclusion> The left ventricle is normal size. There is normal left ventricular wall thickness. Left ventricular systolic function is normal. LVEF is 55-60%. Interatrial septum is intact without evidence of ASD or PFO. The left atrium size is normal. No thrombus is visualized in the left atrium or appendage. [address] [address] TRANSESOPHAGEAL ECHOCARDIOGRAM Name: HINA CLAY Room: [address] IN [facility]#: [id number] Admission: 05/15/18 Attend Phys: Gómez Moreno, Discharge: Date of : 41 Date of Service: 05/18/181956 Report #: [id number] Aortic root is calcified. Moderate calcification noted in the descending aorta. <ELECTRONICALLY SIGNED> By: Gigi Durand MD, FACC 05/18/181956 56 56 Gigi Durand MD, FACC /INF
[2018-05-19] VITALS (36 sets, daily range): BP systolic 93–131; BP diastolic 47–68
[2018-05-19 05:59] LABS: ABSOLUTE EOSINOPHILS 0.1 thou/uL (0.0-0.7); ABSOLUTE LYMPHOCYTES 0.9 thou/uL (0.8-5.3); ABSOLUTE MONOCYTES 0.4 thou/uL (0.0-1.2); ABSOLUTE NEUTROPHILS 5.9 thou/uL (1.6-8.1); BASOPHILS 0.3 %; EOSINOPHILS 1.2 %; HEMATOCRIT 26.3 % (37.0-47.0); LYMPHOCYTES 12.5 %; MCH 30.1 pg (26.0-34.0); MCV 88.5 fL (80.0-100.0); MONOCYTES 5.6 %; MPV 8.3 fl. (7.2-11.1); NUCLEATED RBCS 0 /100WBC; PLATELET COUNT* 244 thou/uL (150-400); POLYS 80.4 %; RBC 2.97 mil/uL (4.20-5.00); RDW-CV 14.1 % (10.5-14.5); WBC 7.3 thou/uL (4.0-11.0)
[2018-05-19 06:09] LABS: PREALBUMIN 13.3 mg/dL (18.0-35.7)
[2018-05-19 06:20] LABS: CALCIUM 7.2 mg/dL (8.5-10.1); CREATININE 1.2 mg/dL (0.6-1.3); MAGNESIUM 2.3 mg/dL (1.8-2.4); POTASSIUM 3.8 mmol/L (3.5-5.1); TOTAL BILIRUBIN 0.4 mg/dL (<0.1-1.0)
[2018-05-19 06:21] LABS: TROPONIN-I LEVEL 0.79 ng/mL (<0.06)
--- NOTE | 2018-05-19 10:11 | EKG ---
[place] [address] ELECTROCARDIOGRAM REPORT Name: DANNAHINA Room: [address] ADM IN M.R.#: [id number] Admission: 05/15/18 Attend Phys: Gómez Moreno MD Discharge: Date of : 41 Report #: [id number] THIS REPORT FOR: //name// [facility] Test Date: 2018-05-19 Test Time: 08:22:15 Pat Name: HINA CLAY Department: Room: [address] Gender: F Parole Officer: : 1945 Requested By: Rusty Pearce Order Number: [id number] Reading MD: Rusty Pearce Measurements Intervals [place] Rate: 83 P: [place]: QRS: 37 QRSD: 100 T: QT: 412 QTc: 485 Interpretive Statements Atrial fibrillation Borderline low voltage, extremity leads Compared to ECG 05/18/2018 10:09:55 rate increased Electronically Signed On 05-19-2018 10:10:54 CDT by Rusty Pearce [email or web address] <ELECTRONICALLY SIGNED> By: Rusty Pearce MD, [facility] 05/19/18 1010 822 1 Rusty Pearce MD, FACC /EPI
[2018-05-20] VITALS (23 sets, daily range): BP systolic 116–173; BP diastolic 60–82
[2018-05-20 06:12] LABS: BASOPHILS 0.6 %; EOSINOPHILS 2.8 %; HEMATOCRIT 26.6 % (37.0-47.0); LYMPHOCYTES 12.6 %; MCH 29.9 pg (26.0-34.0); MCHC 33.9 g/dL (28.0-37.0); MCV 88.3 fL (80.0-100.0); MONOCYTES 6.4 %; MPV 7.9 fl. (7.2-11.1); PLATELET COUNT* 263 thou/uL (150-400); POLYS 77.6 %; RBC 3.02 mil/uL (4.20-5.00); RDW-CV 14.2 % (10.5-14.5)
[2018-05-20 06:13] LABS: ABSOLUTE EOSINOPHILS 0.2 thou/uL (0.0-0.7); ABSOLUTE LYMPHOCYTES 0.9 thou/uL (0.8-5.3); ABSOLUTE MONOCYTES 0.4 thou/uL (0.0-1.2); ABSOLUTE NEUTROPHILS 5.4 thou/uL (1.6-8.1); NUCLEATED RBCS 0 /100WBC
[2018-05-20 06:38] LABS: ALBUMIN 1.9 g/dL (3.4-5.0); CALCIUM 7.1 mg/dL (8.5-10.1); CREATININE 0.9 mg/dL (0.6-1.3); POTASSIUM 3.5 mmol/L (3.5-5.1); TOTAL BILIRUBIN 0.6 mg/dL (<0.1-1.0)
[2018-05-20 06:45] LABS: PREALBUMIN 14.4 mg/dL (18.0-35.7)
[2018-05-20 09:18] LABS: BE -0.6 mmol/L (-2 to +3); HCO3 22.1 mmol/L (22.0-26.0); PO2 60.7 mmHg (75.0-100.0); pH 7.485 (7.340-7.450)
[2018-05-21] VITALS (19 sets, daily range): BP systolic 140–171; BP diastolic 65–85
[2018-05-21 04:32] LABS: ABSOLUTE EOSINOPHILS 0.3 thou/uL (0.0-0.7); ABSOLUTE LYMPHOCYTES 1.1 thou/uL (0.8-5.3); ABSOLUTE MONOCYTES 0.5 thou/uL (0.0-1.2); ABSOLUTE NEUTROPHILS 9.1 thou/uL (1.6-8.1); BASOPHILS 0.4 %; EOSINOPHILS 2.4 %; HEMOGLOBIN 10.5 gm/dL (12.0-15.0); MCH 29.5 pg (26.0-34.0); MCHC 33.7 g/dL (28.0-37.0); MCV 87.6 fL (80.0-100.0); MONOCYTES 4.9 %; MPV 8.7 fl. (7.2-11.1); NUCLEATED RBCS 0 /100WBC; PLATELET COUNT* 315 thou/uL (150-400); POLYS 82.3 %; RBC 3.54 mil/uL (4.20-5.00); RDW-CV 13.7 % (10.5-14.5)
[2018-05-21 04:52] LABS: CALCIUM 7.3 mg/dL (8.5-10.1); CREATININE 0.7 mg/dL (0.6-1.3); MAGNESIUM 2.2 mg/dL (1.8-2.4); TOTAL BILIRUBIN 0.8 mg/dL (<0.1-1.0); TOTAL PROTEIN 5.7 g/dL (6.4-8.2)
[2018-05-21 05:02] LABS: % SATURATION 5 % (20-39); IRON 9 ug/dL (50-175)
[2018-05-22] VITALS (7 sets, daily range): BP systolic 154–194; BP diastolic 81–96
[2018-05-22 08:08] LABS: HEMATOCRIT 31.7 % (37.0-47.0); HEMOGLOBIN 10.5 gm/dL (12.0-15.0); MCH 29.2 pg (26.0-34.0); MCHC 33.2 g/dL (28.0-37.0); MCV 88.1 fL (80.0-100.0); MPV 8.1 fl. (7.2-11.1); NUCLEATED RBCS 0 /100WBC; RDW-CV 13.7 % (10.5-14.5); WBC 11.4 thou/uL (4.0-11.0)
[2018-05-22 08:28] LABS: PLATELET COUNT* 444 thou/uL (150-400)
[2018-05-22 08:29] LABS: ALBUMIN 2.1 g/dL (3.4-5.0); CALCIUM 7.6 mg/dL (8.5-10.1); CREATININE 0.7 mg/dL (0.6-1.3); POTASSIUM 4.1 mmol/L (3.5-5.1); TOTAL BILIRUBIN 0.6 mg/dL (<0.1-1.0); TOTAL PROTEIN 5.9 g/dL (6.4-8.2)
[2018-05-22 09:48] LABS: PREALBUMIN 13.8 mg/dL (18.0-35.7)
[2018-05-22 10:11] LABS: ABSOLUTE BASOPHILS 0.1 thou/uL (0.0-0.2); ABSOLUTE EOSINOPHILS 0.2 thou/uL (0.0-0.7); ABSOLUTE LYMPHOCYTES 0.6 thou/uL (0.8-5.3); ABSOLUTE MONOCYTES 0.5 thou/uL (0.0-1.2); ATYPICAL LYMPHS 1 %; MACROCYTES 1+; PLATELET ESTIMATE ADEQUATE; POLYCHROMASIA 1+
[2018-05-23] VITALS: BP 174/67
[2018-05-23 04:00] VITALS: BP 155/72
[2018-05-23 05:12] LABS: ABSOLUTE BASOPHILS 0.1 thou/uL (0.0-0.2); ABSOLUTE EOSINOPHILS 0.2 thou/uL (0.0-0.7); ABSOLUTE LYMPHOCYTES 0.8 thou/uL (0.8-5.3); ABSOLUTE MONOCYTES 0.6 thou/uL (0.0-1.2); ABSOLUTE NEUTROPHILS 7.9 thou/uL (1.6-8.1); BASOPHILS 0.7 %; EOSINOPHILS 1.6 %; HEMATOCRIT 29.9 % (37.0-47.0); HEMOGLOBIN 10.1 gm/dL (12.0-15.0); LYMPHOCYTES 8.7 %; MCH 29.8 pg (26.0-34.0); MCHC 33.8 g/dL (28.0-37.0); MCV 88.3 fL (80.0-100.0); MONOCYTES 6.5 %; MPV 8.2 fl. (7.2-11.1); NUCLEATED RBCS 0 /100WBC; PLATELET COUNT* 412 thou/uL (150-400); POLYS 82.5 %; RBC 3.39 mil/uL (4.20-5.00); WBC 9.6 thou/uL (4.0-11.0)
[2018-05-23 05:37] LABS: PREALBUMIN 14.3 mg/dL (18.0-35.7)
[2018-05-23 05:44] LABS: ALBUMIN 2.1 g/dL (3.4-5.0); CALCIUM 7.8 mg/dL (8.5-10.1); CREATININE 0.6 mg/dL (0.6-1.3); POTASSIUM 3.6 mmol/L (3.5-5.1); TOTAL BILIRUBIN 0.4 mg/dL (<0.1-1.0); TOTAL PROTEIN 5.7 g/dL (6.4-8.2)
[2018-05-23 08:04] VITALS: BP 168/87
[2018-05-23 13:15] VITALS: BP 167/83
[2018-05-23 19:30] VITALS: BP 179/81
[2018-05-24] VITALS: BP 168/68
[2018-05-24 04:00] VITALS: BP 163/84
[2018-05-24 05:05] LABS: ABSOLUTE BASOPHILS 0.1 thou/uL (0.0-0.2); ABSOLUTE EOSINOPHILS 0.2 thou/uL (0.0-0.7); ABSOLUTE LYMPHOCYTES 1.2 thou/uL (0.8-5.3); ABSOLUTE MONOCYTES 0.7 thou/uL (0.0-1.2); ABSOLUTE NEUTROPHILS 7.4 thou/uL (1.6-8.1); BASOPHILS 0.8 %; EOSINOPHILS 2.6 %; HEMATOCRIT 29.9 % (37.0-47.0); HEMOGLOBIN 10.1 gm/dL (12.0-15.0); LYMPHOCYTES 12.8 %; MCH 29.6 pg (26.0-34.0); MCHC 33.7 g/dL (28.0-37.0); MCV 87.8 fL (80.0-100.0); MONOCYTES 7.3 %; MPV 7.8 fl. (7.2-11.1); NUCLEATED RBCS 0 /100WBC; PLATELET COUNT* 464 thou/uL (150-400); POLYS 76.5 %; WBC 9.7 thou/uL (4.0-11.0)
[2018-05-24 05:30] LABS: PREALBUMIN 15.5 mg/dL (18.0-35.7)
[2018-05-24 05:50] LABS: ALBUMIN 2.1 g/dL (3.4-5.0); CALCIUM 8.1 mg/dL (8.5-10.1); CREATININE 0.6 mg/dL (0.6-1.3); POTASSIUM 3.2 mmol/L (3.5-5.1); TOTAL BILIRUBIN 0.5 mg/dL (<0.1-1.0); TOTAL PROTEIN 5.6 g/dL (6.4-8.2)
--- NOTE | 2018-05-24 07:57 | CON ---
[address] [address] CONSULTATION Name: HINA CLAY Room: [address] IN M.R.#: [id number] Admission: 05/15/18 Attend Phys: Gómez Moreno MD Discharge: Date of : 41 Report #: [id number] THIS REPORT FOR: //name// CC: Gómez Bailey DATE OF SERVICE: 05/21/2018 ATTENDING PHYSICIAN: Rob Wilson MD. REASON FOR EVALUATION: Irregular result of a blood culture. HISTORY OF PRESENT ILLNESS: Chart reviewed, patient examined. This is a 72-year-old with diabetes mellitus, known vasculopathy, has been hospitalized twice in last month, initially with a stroke. It is notable has history of previous strokes with right-sided weakness. There was initially some dysfunctional speech as well as swallowing and seemed to improve. She was discharged latter part of April, was readmitted after sustaining a felt to be a minor injury as a result of a fall, sliding down a commode. She was to be evaluated on the medical floor; however, developed respiratory distress. She was transferred to Intensive Care Unit within 48 hours of the admission on 05/17/2018. At that point, blood cultures were collected, now 1 out of 2 seemingly positive; however, Gram stain was noted to have no organisms seen. This is sent on for further evaluation. She was noted to have fevers over the course of the last 24 hours as high as 101 degrees Fahrenheit. As a result of her respiratory difficulty, she was intubated; however, she was extubated within last 12-18 hours. She is arousable, seemed to be disoriented to some extent. Denies significant amount of pain at this point. She does have somewhat ineffective cough and an audible upper respiratory tract. Retained secretions are noted as well. Chest x-ray does show some changes, although felt to be improving. She is empirically started on broad-spectrum therapy and now currently on cefepime, Flagyl, vancomycin. ALLERGIES: LISTED TO PENICILLINS AND SULFA. CURRENT MEDICATIONS: Include above noted antibiotics, furosemide, digoxin, rivaroxaban, pantoprazole, levothyroxine, p.r.n. analgesics, antiemetics. 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 SOCIAL HISTORY: Nonsmoker, no ethanol. FAMILY HISTORY: [place] [address] CONSULTATION Name: HINA CLAY Room: [address]#: [id number] Admission: 05/15/18 Attend Phys: Gómez Moreno MD Discharge: Date of : 41 Report #: [id number] REVIEW OF SYSTEMS: Somewhat limited. Again, denied any significant abdominal related, specifically nausea, emesis or diarrhea. PHYSICAL EXAMINATION: GENERAL: She appears chronically ill, undernourished. There is some clear evidence of right-sided weakness, although her speech does not appear to be significantly impaired at this point. She appears chronically ill and undernourished. VITAL SIGNS: Temperature 98.5, T-max over the last several hours is 99, pulse 83, respirations blood pressure 140/66. She is on nasal cannula oxygen with saturations approximately 100%. HEENT: Unremarkable. NECK: Supple. LUNGS: Has got few scattered coarse breath sounds. HEART: Regular. Does have a soft systolic murmur. ABDOMEN: Soft. There are no overt peritoneal signs. GENITOURINARY: Deferred. RECTAL: Deferred. LABORATORY DATA: Blood cultures described as above on the , so 4 days ago 2 were collected, one of which is in question. Electrolytes: Sodium 140, potassium 3.0, chloride 104, bicarbonate is 27, anion gap of 9, BUN and creatinine 18 and 0.7. LFTs unremarkable. Albumin of 2.0, total protein 5.7, estimated GFR of 82. Prealbumin of 14.3. Lactic acid 0.9. CBC: White count of 11.0, H and H 7.5 and platelets of 315. ASSESSMENT: Positive blood culture in the setting of recent nosocomial related fevers, certainly at risk for infectious complication possibly some malfunction reportedly with the blood culture. Sent it to further evaluation to [facility]. We will continue empiric therapy for now, try to advance her activity level, optimize her nutritional status. We will be monitor expectantly. At this point, it is not evident she has kind of focal site of pyogenic infection, not particularly concerned about some sort of atypical infection either. <ELECTRONICALLY SIGNED> By: Werner Hunt MD 05/24/18 0757 1234 [id number] Hunt MD /nt
[2018-05-24 08:15] VITALS: BP 173/72
[2018-05-24 13:12] VITALS: BP 165/83
[2018-05-24 16:00] VITALS: BP 178/76
[2018-05-24 19:30] VITALS: BP 165/91
[2018-05-25] VITALS: BP 166/85
[2018-05-25 04:00] VITALS: BP 165/84
[2018-05-25 08:04] VITALS: BP 172/91
[2018-05-25 10:12] VITALS: BP 172/91
[2018-05-25] MEDS ORDERED: DULCOLAX5 MG PO (11:18)
[2018-05-25] MEDS ORDERED: IPRAT-ALBUT 0.5-3 ML INH ×2 (11:20→11:22)
[2018-05-25] MEDS ORDERED: GLUCOTROL5 MG PO (11:22)
[2018-05-25] MEDS ORDERED: HUMALOG100 UNIT/1 SUBQ (11:24)
[2018-05-25] MEDS ORDERED: LOPRESSOR50 PO (11:26)
[2018-05-25] MEDS ORDERED: PROTONIX40 M1 PO (11:27)
[2018-05-25] MEDS ORDERED: XARELTO20 MG PO (11:28)
[2018-05-25 12:00] VITALS: BP 157/76
--- NOTE | 2018-05-26 11:36 | CON ---
[address] [address] CONSULTATION Name: HINA CLAY Alix Room: [address] IN .R.#: [id number] Admission: 05/15/18 Attend Phys: Gómez Moreno MD Discharge: 05/25/18 Date of : 41 Report #: [id number] THIS REPORT FOR: //name// CC: Gómez Rocka Lynn DATE OF SERVICE: 05/18/2018 REQUESTING PHYSICIAN: Rob Wilson M.D. REASON FOR CONSULTATION: Acute kidney injury. HISTORY OF PRESENT ILLNESS: The patient is a 72-year-old female who was admitted to the hospital on 05/14/2018, with the complaints of heart palpitations, not feeling well and has some shortness of breath. She was also very weak and had frequent falls. So when she came to the hospital, they found her to be in atrial fibrillation. She also was diagnosed with a right-sided pneumonia. , field engineer was consulted. The patient was stable until 05/18/2018 when she became hypotensive, bradycardic, went into respiratory failure, had to be transferred to Intensive Care Unit and was intubated. Her creatinine went up from 0.8-1.3 yesterday afternoon at 1.4 today. PAST MEDICAL HISTORY: 1. Breast cancer many years ago, status post bilateral mastectomy. 2. Morbid obesity. 3. History of multiple strokes. 4. History of deconditioning. 5. History of coronary artery disease. FAMILY HISTORY: Noncontributory. SOCIAL HISTORY: No tobacco or alcohol use. MEDICATIONS: Reviewed. PHYSICAL EXAMINATION: GENERAL: Intubated. VITAL SIGNS: Blood pressure is 95/60 but it was as low as 80/50, heart rate is 66, respiratory rate is 29. HEENT: Pupils round. NECK: Fatty. LUNGS: Decreased air movement. CARDIOVASCULAR: Irregular rate. ABDOMEN: Obese, soft. LOWER EXTREMITIES: [place] [address] CONSULTATION Name: HINA CLAY Alix Room: [address]#: [id number] Admission: 05/15/18 Attend Phys: Gómez Moreno MD Discharge: 05/25/18 Date of : 41 Report #: [id number] LABORATORY DATA: Serum sodium 140, potassium is 4.5, chloride 108, carbon dioxide 16, BUN 36, creatinine 1.4. White count is 6.4, hemoglobin is 10.8. MEDICATIONS: Here in the hospital, she was on metronidazole, albuterol, Levophed, Cardizem, sodium bicarbonate. She was also on lisinopril, but lisinopril was stopped and she is on cefepime. ASSESSMENT: 1. Acute kidney injury due to hypotension and bradycardia due to sepsis. 2. Pneumonia. 3. History of breast cancer, apparently was disease free now. 4. Coronary artery disease. 5. Atrial fibrillation. 6. Morbid obesity. PLAN: Supportive care. . Medications adjusted to reverse her bradycardia. She is covered with antibiotics. I will continue with the bicarb drip for now ask to place [place] catheter. Follow her ins and outs in labs. I discussed this case with Dr. Pitt, district sales manager and with Agustina, ICU nurse. Thank you very much for asking my opinion on acute kidney injury. <ELECTRONICALLY SIGNED> By: Elie Spence MD 05/26/18 1136 1055 [id number] Spence MD /[facility]
== END 2018-05-25 15:15 | DRG 871 ==
LOC: M.ERS 22:56 → M.2W 05-15 00:15 → M.TBA-ER 05-15 00:15 → M.2W 05-15 01:15 → M.ICU 05-17 18:58 → M.2W 05-17 19:52 → M.ICU 05-22 10:31 → M.2W 05-22 13:53
PROVIDERS: Internal Medicine; Internal Medicine Cardiovascular Disease; Internal Medicine Pulmonary Disease; Nurse Practitioner Family; ADMIT Internal Medicine
PROC: 5A1945Z Respiratory Ventilation, 24-96 Consecutive Hours (ICD-10-PCS; principal; 2018-05-18)
PROC: 5A09357 Assistance with Respiratory Ventilation, Less than 24 Consecutive Hours, Continuous Positive Airway Pressure (ICD-10-PCS; principal; 2018-05-18)
PROC: 0BH17EZ Insertion of Endotracheal Airway into Trachea, Via Natural or Artificial Opening (ICD-10-PCS; principal; 2018-05-18)
PROC: 05HY33Z Insertion of Infusion Device into Upper Vein, Percutaneous Approach (ICD-10-PCS; principal; 2018-05-18)
PROC: B24BZZ4 Ultrasonography of Heart with Aorta, Transesophageal (ICD-10-PCS; principal; 2018-05-18)
DX: A41.9 Sepsis, unspecified organism (principal); J69.0 Pneumonitis due to inhalation of food and vomit; J96.00 Acute respiratory failure, unspecified whether with hypoxia or hypercapnia; I21.4 Non-ST elevation (NSTEMI) myocardial infarction; N17.9 Acute kidney failure, unspecified; E44.0 Moderate protein-calorie malnutrition; I69.359 Hemiplegia and hemiparesis following cerebral infarction affecting unspecified side; Z68.41 Body mass index [BMI] 40.0-44.9, adult; I10 Essential (primary) hypertension; E03.9 Hypothyroidism, unspecified; E11.9 Type 2 diabetes mellitus without complications; I48.91 Unspecified atrial fibrillation; E78.5 Hyperlipidemia, unspecified; R00.1 Bradycardia, unspecified; E66.01 Morbid (severe) obesity due to excess calories; I95.9 Hypotension, unspecified; J40 Bronchitis, not specified as acute or chronic; D64.9 Anemia, unspecified; I25.10 Atherosclerotic heart disease of native coronary artery without angina pectoris; K21.9 Gastro-esophageal reflux disease without esophagitis; Z90.13 Acquired absence of bilateral breasts and nipples; Z90.710 Acquired absence of both cervix and uterus; Z85.3 Personal history of malignant neoplasm of breast; Z88.0 Allergy status to penicillin; Z88.2 Allergy status to sulfonamides; Z82.49 Family history of ischemic heart disease and other diseases of the circulatory system

== ENCOUNTER 2019-07-10 16:27 | Inpatient (IN) | payer OTHER ==
[~2019-07-10] VITALS: Ht 172.7 cm; Wt 91.6 kg
[~2019-07-10 16:27] MED LIST changes: +DULCOLAX5 MG PO; +HUMALOG100 UNIT/1 SUBQ; +IPRAT-ALBUT 0.5-3 ML INH; +LOPRESSOR50 PO; +PROTONIX40 M1 PO; +XARELTO20 MG PO
[2019-07-10 16:42] VITALS: BP 179/90
[2019-07-10] MEDS ORDERED: METFORMIN HCL500 M3 PO (16:46)
[2019-07-10 17:15] LABS: URINE BILIRUBIN NEGATIVE (Negative); URINE BLOOD NEGATIVE (Negative); URINE CLARITY CLEAR; URINE COLOR YELLOW; URINE GLUCOSE-RANDOM NEGATIVE (Negative); URINE KETONES NEGATIVE (Negative); URINE LEUKOCYTES-REFLEX NEGATIVE (Negative); URINE NITRITE-REFLEX NEGATIVE (Negative); URINE PROTEIN NEGATIVE (Negative); URINE SPECIFIC GRAVITY >= 1.030 (1.005-1.030)
[2019-07-10 17:17] LABS: ABSOLUTE BASOPHILS 0.1 thou/uL (0.0-0.2); ABSOLUTE EOSINOPHILS 0.2 thou/uL (0.0-0.7); ABSOLUTE LYMPHOCYTES 3.4 thou/uL (0.8-5.3); ABSOLUTE MONOCYTES 0.7 thou/uL (0.0-1.2); ABSOLUTE NEUTROPHILS 5.9 thou/uL (1.6-8.1); BASOPHILS 1.2 %; EOSINOPHILS 2.1 %; HEMATOCRIT 39.6 % (37.0-47.0); HEMOGLOBIN 13.3 gm/dL (12.0-15.0); MCH 29.3 pg (26.0-34.0); MCHC 33.7 g/dL (28.0-37.0); MCV 87.1 fL (80.0-100.0); MONOCYTES 6.6 %; MPV 8.7 fl. (7.2-11.1); NUCLEATED RBCS 0 /100WBC; PLATELET COUNT* 337 thou/uL (150-400); POLYS 57.1 %; RBC 4.55 mil/uL (4.20-5.00); RDW-CV 14.3 % (10.5-14.5); WBC 10.3 thou/uL (4.0-11.0)
[2019-07-10 17:25] LABS: APTT 22.5 Seconds (25.0-31.3); CALCIUM 9.3 mg/dL (8.5-10.1); INR 1.1; POTASSIUM 3.9 mmol/L (3.5-5.1); PROTIME 10.9 Seconds (9.20-11.50)
[2019-07-10 17:35] LABS: ALBUMIN 3.8 g/dL (3.4-5.0); TOTAL BILIRUBIN 0.4 mg/dL (<0.1-1.0); TOTAL PROTEIN 6.8 g/dL (6.4-8.2)
[2019-07-10 19:54] VITALS: BP 169/75
[2019-07-10 20:00] VITALS: BP 144/72
[2019-07-11] VITALS: BP 150/70
[2019-07-11 04:00] VITALS: BP 152/77
--- NOTE | 2019-07-11 12:11 | EKG ---
[place] [address] ELECTROCARDIOGRAM REPORT Name: HINA CLAY Room: [address] ADM IN M.R.#: [id number] Admission: 07/10/19 Attend Phys: Gómez Moreno MD Discharge: Date of : 41 Report #: [id number] THIS REPORT FOR: //name// [facility] ED Test Date: 2019-07-10 Test Time: 16:43:59 Pat Name: HINA CLAY Department: Room: [facility] Gender: F Janitor Caretaker: : 1945 Requested By: Danya Curry Order Number: [id number] MD: Mynor Javier Measurements Intervals [place] Rate: 92 P: [place]: QRS: 86 QRSD: 165 T: -20 QT: 405 QTc: 502 Interpretive Statements Atrial fibrillation Ventricular premature complex Right bundle branch block Compared to ECG 05/19/2018 08:22:15 Ventricular premature complex(es) now present Right bundle-branch block now present Electronically Signed On 07-11-2019 12:11:17 INTERNAL AUDIT SENIOR MANAGER by Mynor Javier [email or web address] <ELECTRONICALLY SIGNED> By: Mynor Javier MD, FAC 07/11/19 1211 1643 1643 Mynor Javier MD, [facility] /EPI
[2019-07-11 12:48] VITALS: BP 153/81
[2019-07-11 17:00] VITALS: BP 134/73
--- NOTE | 2019-07-11 17:01 | 2DMMODE ---
[place] [address] 2 D/M-MODE ECHOCARDIOGRAM Name: HINA CLAY Alix Room: [address] IN [facility]#: [id number] Admission: 07/10/19 Attend Phys: Gómez Moreno, Discharge: Date of : 41 Date of Service: 07/11/19 1701 Report #: [id number] THIS REPORT FOR: //name// APPROVED REPORT Study performed: 07/11/2019 14:41:28 EXAM: Comprehensive 2D, Doppler, and color-flow Echocardiogram Patient Location: In-Patient Room #: [facility] [place] Status: routine BSA: 2.05 HR: 87 bpm BP: 153/81 mmHg Rhythm: NSR Other Information Study Quality: Good Indications dizziness 2D Dimensions IVSd: 12.35 (7-11mm) LVOT Diam: 20.11 (18-24mm) LVDd: 42.52 mm PWd: 11.29 (7-11mm) Ascending Ao: 39.16 (22-36mm) LVDs: 33.45 (25-40mm) Aortic Root: 28.76 mm Volumes Left Atrial Volume (Systole) LA ESV Index: 40.00 mL/m2 Aortic Valve AoV Peak James.: 1.55 m/s AO Peak Gr.: 9.64 mmHg LVOT Max P.67 mmHg AO Mean Gr.: 5.31 mmHg LVOT Mean P.20 mmHg LVOT Max V: 0.82 m/s AO V2 VTI: 25.85 cm LVOT Mean V: 0.50 m/s ANASTASIA (VTI): 1.72 cm2 LVOT V1 VTI: 13.97 cm TDI Medial E' James.: 0.15 m/s Lateral E' James.: 0.11 m/[place] [address] 2 D/M-MODE ECHOCARDIOGRAM Name: HINA CLAY Room: [address] IN [facility].#: [id number] Admission: 07/10/19 Attend Phys: Gómez Moreno, Discharge: Date of : 41 Date of Service: 07/11/19 1701 Report #: [id number] Pulmonary Valve PV Peak James.: 0.74 m/s PV Peak Gr.: 2.17 mmHg Tricuspid Valve RAP Estimate: 5.00 mmHg TR Peak Gr.: 18.51 mmHg RVSP: 23.00 mmHg PA Pressure: 23.00 mmHg Left Ventricle The left ventricle is normal size. There is normal LV segmental wall motion. Mild concentric left ventricular hypertrophy. Left ventricular systolic function is normal. LVEF is 55-60%. This study is not technically sufficient to allow evaluation of the LV diastolic function due to atrial fibrillation. Right Ventricle The right ventricle is normal size. The right ventricular systolic function is normal. Atria Left atrium is moderately dilated. Right atrium is mildly dilated. Aortic Valve Mild aortic valve sclerosis. No aortic regurgitation is present. Mild aortic stenosis. Mitral Valve The mitral valve is normal in structure. Trace mitral regurgitation. No evidence of mitral valve stenosis. Tricuspid Valve The tricuspid valve is normal in structure. Trace tricuspid regurgitation. No pulmonary hypertension. Pulmonic Valve The pulmonary valve is normal in structure. There is no pulmonic valvular regurgitation. Great Vessels Aortic root is mildly dilated. IVC is normal in size and collapses >50% with inspiration. Pericardium There is [place] [address] 2 D/M-MODE ECHOCARDIOGRAM Name: HINA CLAY Room: [address] IN ..#: [id number] Admission: 07/10/19 Attend Phys: Gómez Moreno, Discharge: Date of : 41 Date of Service: 07/11/19 1701 Report #: [id number] <Conclusion> The left ventricle is normal size. Mild concentric left ventricular hypertrophy. Left ventricular systolic function is normal. LVEF is 55-60%. Left atrium is moderately dilated. Right atrium is mildly dilated. Mild aortic valve sclerosis. Mild aortic stenosis. Trace tricuspid regurgitation. No pulmonary hypertension. IVC is normal in size and collapses >50% with inspiration. Aortic root is mildly dilated. <ELECTRONICALLY SIGNED> By: Gigi Durand MD, FACC 07/11/191700 00 00 Gigi Durand MD, FACC /INF
[2019-07-11 23:05] LABS: GLYCOHEMOGLOBIN (HGB A1C) 8.5 % (4.8-5.6)
--- NOTE | 2019-07-15 12:46 | CON ---
[address] [address] CONSULTATION Name: DANNALYUBOVAbril Thomson Room: [address] IN M.R.#: [id number] Admission: 07/10/19 Attend Phys: Gómez Moreno MD Discharge: 07/11/19 Date of : 41 Report #: [id number] THIS REPORT FOR: //name// CC: Gómez Bailey DATE OF SERVICE: 07/11/2019 HISTORY OF PRESENT ILLNESS: This is a 74-year-old female patient whose consultation was requested to evaluate the patient for the possibility of TIA. The patient indicated that she woke up yesterday dizzy. She became better. She also had the similar symptoms the day before. The movement of the neck made the dizziness worse. Upright position did not make it worst. She had multiple strokes in the past. In fact, I have seen this patient in the past and I reviewed those records. She was ultimately diagnosed with atrial fibrillation and she is on Xarelto and she takes Xarelto on a regular basis. She indicated that she did not miss any dosages for Xarelto. She does not have any other specific ENT symptoms. In 2018, she had CTA of the head and neck and that did not show any definite high-grade stenosis. The patient is feeling much better today. REVIEW OF SYSTEMS: Indicate that she has a history of atrial fibrillation. She has seen apartment locator here. She also has seen multiple other physicians including ID. One time, she was diagnosed with pulmonary edema. She indicates that she had a stroke affecting the right side. In fact, she indicates she had four strokes. The leg has been weak since 2016. A 14-point review of system was carried out and it does not look like she has any additional eye, ENT, respiratory, musculoskeletal, constitutional, dermatological, hematological, psychiatric, throat symptoms associated with present symptomatology. PAST MEDICAL HISTORY: Positive for CVA. FAMILY HISTORY: Negative for any early age stroke. SOCIAL HISTORY: She does not abuse alcohol. PHYSICAL EXAMINATION: Indicates she is alert, responsive, able to follow simple and complex commands. Her speech, concentration, fund of knowledge and memory is at her baseline. Cranial nerve examination 2-12 was mostly unremarkable. She has a baseline weakness, which is worse in the leg than arm. I do not believe it has changed much. The main symptom was dizziness. Blood pressure is about 152/77, respirations 20, pulse is 75, temperature is 98. LABORATORY DATA: White count is 10.3 and GFR is 54 and creatinine is 1[address] CT scan of the head appeared old changes, but no changes. [place] [address] CONSULTATION Name: HINA CLAY Alix Room: [address] IN M.R.#: [id number] Admission: 07/10/19 Attend Phys: Gómez Moreno MD Discharge: 07/11/19 Date of : 41 Report #: [id number] IMPRESSION: It would appear that the present symptoms in this patient are probably related to ENT pathology, then DYNAMICS AX DEVELOPER pathology. However, this patient has a strong prior history of CVAs and because of that, I think it is desirable to exclude the possibility of cerebrovascular accident. I recommended MRI of the brain and MRA. She is adamant that she will not do MRI. I did discuss with her that is the most appropriate test, but she will not go for it. Alternative is to get a CT angiogram, which does have its own potential complication. I discussed those with her. I discussed the patient with hospitalist. I suggested giving a fluid bolus of 1 liter and then doing a CT head and neck this afternoon. If that is okay, that will make it even more likely that the patient's symptoms are because of ENT pathology and she should follow up with ENT then. I will suggest repeating the echo. Thank you very much for this referral and if you have any question, please feel free to contact me and more than 50 minutes of time was spent taking care of this patient today and majority of the time was spent counseling and coordinating. <ELECTRONICALLY SIGNED> By: Sean Smith MD 07/15/19 1246 1140 1203Pshailesh Smith MD /nt
== END 2019-07-11 19:45 | disposition left against medical advice (07) | DRG 149 ==
LOC: M.ERS 16:27 → M.2W 18:37 → M.TBA-ER 18:37 → M.2W 19:56
PROVIDERS: Family Medicine; Personal Emergency Response Attendant; ADMIT Internal Medicine
DX: H81.399 Other peripheral vertigo, unspecified ear (principal); I48.20 Chronic atrial fibrillation, unspecified; D68.59 Other primary thrombophilia; I50.30 Unspecified diastolic (congestive) heart failure; I69.351 Hemiplegia and hemiparesis following cerebral infarction affecting right dominant side; E11.9 Type 2 diabetes mellitus without complications; E89.0 Postprocedural hypothyroidism; E66.01 Morbid (severe) obesity due to excess calories; I35.0 Nonrheumatic aortic (valve) stenosis; I25.10 Atherosclerotic heart disease of native coronary artery without angina pectoris; I11.0 Hypertensive heart disease with heart failure; Z53.29 Procedure and treatment not carried out because of patient's decision for other reasons; Z90.710 Acquired absence of both cervix and uterus; Z85.3 Personal history of malignant neoplasm of breast; Z68.30 Body mass index [BMI] 30.0-30.9, adult; I25.2 Old myocardial infarction; Z88.0 Allergy status to penicillin; Z88.2 Allergy status to sulfonamides; Z79.01 Long term (current) use of anticoagulants